=== PATIENT | male | born 1950 | race Caucasian/White ===

== ENCOUNTER 2018-02-19 16:33 | Emergency (ER) | payer OTHER ==
[~2018-02-19] VITALS: Ht 175.3 cm; Wt 94.3 kg
[2018-02-19] MEDS ORDERED: ADVAIR HFA 230M12 GM INH (17:25)
[2018-02-19] MEDS ORDERED: METFORMIN HCL500 MG PO (17:25)
[2018-02-19] MEDS ORDERED: VENTOLIN HFA 1818 GM INH (17:26)
[2018-02-19 18:08] LABS: ABSOLUTE NEUTROPHILS 11.6 thou/uL (1.4-8.2); BASOPHILS 0.2 % (0.0-2.0); EOSINOPHILS 0.9 % (0.0-3.0); HEMATOCRIT 43.1 % (42.0-52.0); HEMOGLOBIN 14.4 gm/dL (14.0-18.0); LYMPHOCYTES 15.3 % (24.0-44.0); MCH 29.3 pg (26.0-34.0); MCHC 33.5 g/dL (28.0-37.0); MCV 87.2 fL (80.0-100.0); MONOCYTES 5.4 % (1.0-8.0); PLATELET COUNT 269 thou/uL (150-400); POLYS 78.2 % (36.0-66.0); RBC 4.94 mil/uL (4.50-6.00); RDW 13.4 % (10.5-14.5); WBC 14.8 thou/uL (4.0-11.0)
[2018-02-19 18:10] LABS: CALCIUM 9.2 mg/dL (8.5-10.1); CREATININE 1.5 mg/dL (0.7-1.3); POTASSIUM 4.4 mmol/L (3.5-5.1)
[2018-02-19 18:15] LABS: ALBUMIN 2.9 g/dL (3.4-5.0); DIRECT BILIRUBIN 0.1 mg/dL (<0.1-0.3); TOTAL BILIRUBIN 0.3 mg/dL (<0.1-1.0); TOTAL PROTEIN 7.1 g/dL (6.4-8.2)
[2018-02-19 19:22] LABS: URINE BILIRUBIN NEGATIVE (Negative); URINE BLOOD NEGATIVE (Negative); URINE CLARITY CLEAR; URINE COLOR YELLOW; URINE GLUCOSE-RANDOM* 3+ (Negative); URINE KETONES NEGATIVE (Negative); URINE LEUKOCYTES-REFLEX NEGATIVE (Negative); URINE NITRITE-REFLEX NEGATIVE (Negative); URINE PROTEIN (DIPSTICK) NEGATIVE (Negative); URINE SPECIFIC GRAVITY <= 1.005 (1.005-1.035); URINE UROBILINOGEN 0.2 E.U./dl (0.2-1.0)
[2018-02-19 22:49] VITALS: BP 127/76
== END 2018-02-19 23:01 | disposition home or self-care (01) ==
LOC: ER 16:33
PROVIDERS: Emergency Medicine
DX: R19.7 Diarrhea, unspecified (principal); J45.909 Unspecified asthma, uncomplicated; E11.9 Type 2 diabetes mellitus without complications; Z88.1 Allergy status to other antibiotic agents

== ENCOUNTER → 2019-03-17 | Outpatient (CLI) | payer OTHER ==
[~2019-03-17] MED LIST: ADVAIR HFA 230M12 GM INH; JARDIANCE10 MG PO; METFORMIN HCL500 MG PO; NEURONTIN 300300 M1 PO; SYMBICORT80 MCG/4.1 INH; VENTOLIN HFA 1818 GM INH
== END ==
LOC: CAT 11:18
DX: K44.9 Diaphragmatic hernia without obstruction or gangrene (principal); N13.30 Unspecified hydronephrosis; M47.816 Spondylosis without myelopathy or radiculopathy, lumbar region

== ENCOUNTER 2019-03-23 09:36 | Emergency (ER) | payer OTHER ==
[~2019-03-23] VITALS: Ht 175.3 cm; Wt 91.6 kg
[~2019-03-23 09:36] MED LIST changes: -JARDIANCE10 MG PO; -NEURONTIN 300300 M1 PO; -SYMBICORT80 MCG/4.1 INH
[2019-03-23] MEDS ORDERED: SYMBICORT80 MCG/4.1 INH (09:52)
[2019-03-23] MEDS ORDERED: NEURONTIN 300300 M1 PO (09:52)
[2019-03-23] MEDS ORDERED: JARDIANCE10 MG PO (09:56)
[2019-03-23 10:31] LABS: ABSOLUTE NEUTROPHILS 4.1 thou/uL (1.4-8.2); EOSINOPHILS 4.6 % (0.0-3.0); HEMOGLOBIN 14.2 gm/dL (14.0-18.0); LYMPHOCYTES 23.8 % (24.0-44.0); MCH 28.7 pg (26.0-34.0); MCHC 32.9 g/dL (28.0-37.0); MCV 87.2 fL (80.0-100.0); MONOCYTES 4.6 % (1.0-8.0); PLATELET COUNT 165 thou/uL (150-400); RBC 4.93 mil/uL (4.50-6.00); RDW 13.4 % (10.5-14.5); WBC 6.3 thou/uL (4.0-11.0)
[2019-03-23 10:46] LABS: ANION GAP 5 mmol/L (7-16); BUN 15 mg/dL (7-18); CHLORIDE 103 mmol/L (98-107); CO2 27 mmol/L (21-32); CREATININE 1.2 mg/dL (0.7-1.3); GLUCOSE 234 mg/dL (74-106); POTASSIUM 4.1 mmol/L (3.5-5.1); SODIUM 135 mmol/L (136-145)
[2019-03-23 10:56] LABS: TROPONIN-I <0.06 ng/mL (<0.06)
[2019-03-23 12:13] VITALS: BP 118/68
--- NOTE | 2019-03-24 09:20 | EKG ---
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: [facility] : 1950 Requested By: David Corado Order Number: [id number] MD: Jaime Garay Measurements Intervals [place] Rate: 70 P: 60 NV: 201 QRS: -70 QRSD: 151 T: 89 QT: 436 QTc: 471 Interpretive Statements Sinus rhythm Nonspecific IVCD with LAD Compared to ECG 06/23/2000 00:06:10 Intraventricular conduction delay now present axis has shifted leftward Electronically Signed On 03-24-2019 9:20:39 CDT by Jaime Garay [email or web address] <ELECTRONICALLY SIGNED> By: Jaime Garay MD, [facility] 03/24/19919 21 102 Jaime Garay MD, FACC /EPI
== END 2019-03-23 12:14 | disposition home or self-care (01) ==
LOC: ER 09:36
PROVIDERS: Emergency Medicine
DX: M79.602 Pain in left arm (principal); J45.909 Unspecified asthma, uncomplicated; E11.9 Type 2 diabetes mellitus without complications; Z90.89 Acquired absence of other organs; Z88.6 Allergy status to analgesic agent

== ENCOUNTER → 2020-03-29 | Outpatient (CLI) | payer OTHER ==
[~2020-03-29] MED LIST changes: +JARDIANCE10 MG PO; +NEURONTIN 300300 M1 PO; +SYMBICORT80 MCG/4.1 INH
== END ==
LOC: LAB 08:48
PROVIDERS: ATTEND Family Medicine
DX: Z20.828 Contact with and (suspected) exposure to other viral communicable diseases (principal)

== ENCOUNTER 2020-04-09 10:14 | Inpatient (IN) | payer OTHER ==
[~2020-04-09] VITALS: Ht 175.3 cm; Wt 90.0 kg
[2020-04-09 10:14] VITALS: BP 149/94
[2020-04-09 11:14] LABS: ABSOLUTE NEUTROPHILS 5.9 thou/uL (1.4-8.2); BASOPHILS 0.6 % (0.0-2.0); EOSINOPHILS 1.6 % (0.0-3.0); HEMATOCRIT 45.1 % (42.0-52.0); HEMOGLOBIN 14.7 gm/dL (14.0-18.0); LYMPHOCYTES 17.3 % (24.0-44.0); MCH 28.6 pg (26.0-34.0); MCHC 32.7 g/dL (28.0-37.0); MCV 87.6 fL (80.0-100.0); MONOCYTES 7.6 % (1.0-8.0); PLATELET COUNT 166 thou/uL (150-400); POLYS 72.9 % (36.0-66.0); RBC 5.14 mil/uL (4.50-6.00); RDW 13.7 % (10.5-14.5)
[2020-04-09 11:24] LABS: CALCIUM 8.8 mg/dL (8.5-10.1); CREATININE 1.3 mg/dL (0.7-1.3); POTASSIUM 4.4 mmol/L (3.5-5.1)
[2020-04-09 11:35] LABS: ALBUMIN 3.9 g/dL (3.4-5.0); TOTAL PROTEIN 7.6 g/dL (6.4-8.2); TROPONIN-I 0.07 ng/mL (<0.06)
--- NOTE | 2020-04-09 14:39 | EKG ---
[facility] [place] [address] ELECTROCARDIOGRAM REPORT Name: LASHA MENA Room #: 170-12 ADM IN M.R.#: [id number] Admission: 04/09/20 Attend Phys: Shade Murray MD Discharge: Date of : 46 Report #: [id number] THIS REPORT FOR: cc: Shade Murray MD, Neal A. 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1950 Requested By: Girma Benton Order Number: [id number] MD: Anthony Ramirez Measurements Intervals [place] Rate: 93 P: 55 MI: 200 QRS: -80 QRSD: 159 T: 84 QT: 416 QTc: 518 Interpretive Statements Sinus rhythm Borderline prolonged [place] interval Nonspecific IVCD with LAD Left ventricular hypertrophy Compared to ECG 03/23/2019 10:22:48 Left ventricular hypertrophy now present Electronically Signed On 04-09-2020 14:39:30 INDUSTRIAL EDUCATION TEACHER by Anthony Ramirez [email or web address] <ELECTRONICALLY SIGNED> By: Anthony Ramirez MD, FACC 04/09/20 1439 1037 1037 Anthony Ramirez MD, [facility] /EPI
[2020-04-10 09:31] VITALS: BP 133/88
[2020-04-10 10:00] VITALS: BP 133/88
[2020-04-10 11:15] VITALS: BP 133/88
[2020-04-10 14:41] LABS: HEMATOCRIT 45.3 % (42.0-52.0); HEMOGLOBIN 15.1 gm/dL (14.0-18.0); MCH 28.9 pg (26.0-34.0); MCHC 33.3 g/dL (28.0-37.0); MCV 86.8 fL (80.0-100.0); RBC 5.22 mil/uL (4.50-6.00); RDW 13.7 % (10.5-14.5); WBC 6.6 thou/uL (4.0-11.0)
[2020-04-10 14:59] LABS: APTT 25.6 Seconds (24.5-32.8); INR 1.1; PROTIME 11.2 Seconds (9.3-11.4)
[2020-04-10 16:00] VITALS: BP 110/71
--- NOTE | 2020-04-10 17:47 | NUR ---
ADMISION COMPLETED, AND POC INITIATED. HEPARIN GTT STARTED AND WILL CONTINUE WITH POC.
[2020-04-10 19:55] VITALS: BP 133/68
[2020-04-11 00:13] VITALS: BP 116/71
[2020-04-11 04:45] VITALS: BP 110/74
--- NOTE | 2020-04-11 04:46 | NUR ---
ASSESSMENTS CHARTED, MEDS CHARTED GIVEN. 1ST DEGREE AND BBB BLOCKS. ON ROOM AIR. UP AT JANEL IN ROOM. ON HEPARIN DRIP DURING SHIFT.BOLUS AND RATE INCREASED DURING SHIFT. RECHECK ORDERED. FALL PRECAUTIONS IN PLACE DURING SHIFT.
[2020-04-11 07:30] VITALS: BP 117/83
[2020-04-11 13:26] VITALS: BP 106/66
[2020-04-11 16:33] VITALS: BP 96/64
--- NOTE | 2020-04-11 17:24 | NUR ---
ASSUMED CARE AT SHIFT CHANGE, ASSESSMENT DOCUMNETED, VSS AND AFEBRILE. REMIANS ON HEPARIN GTT, NO CHANGE MADE. PLAN IS NPO MID NIGHT AND LT HEART CATH IN THE AM. AND WILL CONTINUE WITH POC.
[2020-04-11 20:33] VITALS: BP 106/81
[2020-04-12] VITALS (12 sets, daily range): BP systolic 100–125; BP diastolic 50–75
--- NOTE | 2020-04-12 06:40 | NUR ---
ASSUME CARE 1900. PT/VITALS STABLE. DENIES ANY PAIN. STABLE VITALS. ADEQUATE REST NOTED. NO DISTRESS. SR ON MONITOR. ASSESSMENT CHARTED. PROGRESSING WELL WITH POC. PLAN IS POSSIBLE CARDIAC CATH TODAY. WILL CONTINUE TO MONITOR AND FOLLOW WITH POC
[2020-04-12 06:49] LABS: CALCIUM 9.2 mg/dL (8.5-10.1); CREATININE 1.3 mg/dL (0.7-1.3); POTASSIUM 3.9 mmol/L (3.5-5.1)
--- NOTE | 2020-04-12 08:54 | 2DMMODE ---
[facility] [address] [place] [address] 2 D/M-MODE ECHOCARDIOGRAM Name: LASHA MENA Room #: 211-P ADM IN .R.#: [id number] Admission: 04/09/20 Attend Phys: Shade Murray MD Discharge: Date of : 46 Report #: [id number] THIS REPORT FOR: cc: Shade Murray MD, Neal A. MD Park, Jin S. MD ~ ADDENDUM APPROVED REPORT Study performed: 04/10/2020 10:19:17 EXAM: Comprehensive 2D, Doppler, and color-flow Echocardiogram Patient Location: ER Status: routine BSA: 2.12 HR: 82 bpm BP: 133/83 mmHg Rhythm: NSR Other Information Study Quality: Fair Risk Factors: Cardiac Risk Factors: DM Indications Congestive Heart Failure 2D Dimensions RVDd: 34.75 mm IVSd: 13.84 (7-11mm) LVOT Diam: 26.03 (18-24mm) LVDd: 70.91 mm PWd: 14.83 (7-11mm) Ascending Ao: 40.51 (22-36mm) LVDs: 63.88 (25-40mm) Left Atrium: 50.04 (27-40mm) Aortic Root: 38.94 mm Volumes Left Atrial Volume (Systole) Single Plane 4CH: 54.01 mL Single Plane 2CH: 72.58 mL Aortic Valve AoV Peak Kimo.: 1.39 m/s AO Peak Gr.: 7.70 mmHg LVOT Max P.31 mmHg [facility] [address] [place] [address] 2 D/M-MODE ECHOCARDIOGRAM Name: MENALASHA Room #: 211-P [facility] IN .R.#: [id number] Admission: 04/09/20 Attend Phys: Shade Murray, Discharge: Date of : 46 Report #: [id number] LVOT Max V: 0.91 m/s KUNAL Vmax: 3.49 cm2 Mitral Valve E/A Ratio: 0.5 MV E Max Kimo.: 0.59 m/s MV A Kimo.: 1.21 m/s Left Ventricle Left ventricle is dilated. Borderline concentric left ventricular hypertrophy. Left ventricular ejection fraction is severely decreased. Left ventricular apical thrombus appears to be present. LVEF is 15-20%. Right Ventricle The right ventricle is normal size. Right ventricle is moderately hypokinetic. Atria Left atrium is mildly dilated. The right atrium size is normal. Aortic Valve The aortic valve is normal in structure. Trace aortic regurgitation. There is no aortic valvular stenosis. Mitral Valve The mitral valve is normal in structure. Mild mitral regurgitation. No evidence of mitral valve stenosis. Tricuspid Valve The tricuspid valve is normal in structure. Unable to assess PA pressure. Pulmonic Valve The pulmonary valve is normal in structure. There is no pulmonic valvular regurgitation. Great Vessels Aortic root is dilated. IVC is normal in size and collapses >50% with inspiration. Pericardium There is no pericardial effusion. <Conclusion> [facility] [address] [place] [address] 2 D/M-MODE ECHOCARDIOGRAM Name: MENALASHA Room #: 211-P [facility] IN M.R.#: [id number] Admission: 04/09/20 Attend Phys: Shade Murray, Discharge: Date of : 46 Report #: [id number] Left ventricle is dilated. Left ventricular ejection fraction is severely decreased. Left ventricular apical thrombus appears to be present. The right ventricle is normal size. Trace aortic regurgitation. Mild mitral regurgitation. <ELECTRONICALLY SIGNED> By: Eddie Foster MD 04/12/2054 3 3 Eddie Foster MD /INF
[2020-04-12 12:47] LABS: BE(vivo) 0.6 mmol/L (-2 to +3); HCO3 24.9 mmol/L (22.0-26.0); PCO2 39.1 mmHg (35.0-45.0); pH 7.422 (7.360-7.450); sO2 99.3 % (92.0-98.0)
[2020-04-12 12:48] LABS: BE(vivo) 0.9 mmol/L (-2 to +3); HCO3 26.8 mmol/L (22.0-26.0); PCO2 47.6 mmHg (35.0-45.0); PO2 36.8 mmHg (80.0-100.0); pH 7.369 (7.360-7.450)
--- NOTE | 2020-04-12 15:13 | CATHLAB ---
[facility] [address] [place] [address] INVASIVE PROCEDURE REPORT Name: LASHA MENA Room #: 211-P ADM IN M.R.#: [id number] Admission: 04/09/20 Attend Phys: Shade Murray MD Discharge: Date of : 46 Report #: [id number] THIS REPORT FOR: cc: Shade Murray MD, Neal A. MD Park, Jin S. MD ~ APPROVED REPORT Study performed: 04/12/2020 12:04:06 Patient Details Patient Status: In-Patient Room #: 211 The patient is a 69 year-old male Event Personnel Eddie Foster Substance Abuse Nurse, Milka Ko RN RN, Birdie Trotter RTR Scrub, Anthony Cruz RTR Monitor, Lauren Vásquez RTR, RESIDENTIAL TREATMENT SPECIALIST Monitor, Fatuma Edwards RT(R)() Scrub Procedures Performed Art Access - R femoral artery* Tito Access - R femoral vein Right and Left Heart Cath w/or w/o Coronarie 9055703 RLHC Hemostasis with Manual pressure 27652 Initial Mod Sed Same Phys/QHP Gr5y 564599 24784 Mod Sed Same Phys/QHP Ea 144070 43375 Mod Sed Same Phys/QHP Ea 512351 Indication CHF Current Status: , Dyspnea, Cardiomyopathy Risk Factors Hypercholesterolemia, Hypertension Procedure Narrative The Right Groin^ was infiltrated with 1% Lidocaine subcutaneous anesthesia. A PINNACLE 4FR Sheath #[id number] sheath was inserted into the RFA. Coronary angiography was performed using coronary diagnostic catheters. The right coronary system was accessed and visualized with a JR4 catheter. The left coronary system was accessed and visualized with a 4FR JL 5.0 #[id number] catheter. The left ventricle was accessed and visualized with a angled pigtail catheter. Left ventricular/Aortic Valve gradient assessed . Left ventriculogram was performed in 30 degree projection. Hemostasis was obtained with manual pressure following sheath removal without any complications. The patient tolerated the procedure well and there were no [facility] [address] [address] INVASIVE PROCEDURE REPORT Name: TRINALASHA C Room #: 211-P [facility] IN [facility]#: [id number] Admission: 04/09/20 Attend Phys: Shade Murray, Discharge: Date of : 46 Report #: [id number] complications associated with the procedure. There was no hematoma. Intraoperative Conscious Sedation Sedation start time: 12:23 Case end Time: 13:02 Fentanyl 50 mcg Versed 1 mg Fluoro Time: 5.60 minutes Dose: DAP 9967.00 cGycm2 1494 mGy Contrast Type and Amount: Visipaque 90 ml Coronary Angiography The patient's coronary anatomy is right dominant. Diagnostic Cath Left Main The left main artery is a large-caliber vessel, patent with no flow-limiting lesions. LAD The LAD is a moderate-sized caliber vessel, traverses the anterior wall and wraps around the apex. There is a mild stenosis in the proximal segment, 20%. Diagonal 1 This is a moderate-sized caliber vessel, patent with no flow-limiting lesions. Diagonal 2 This is a moderate-sized caliber vessel, patent with no flow-limiting lesions. Circumflex The left circumflex artery is a patent vessel, with no flow-limiting lesions. Supplies 2 obtuse marginal arteries. OM1 This is a moderate-sized caliber vessel, patent with no flow-limiting lesions. OM2 This is a moderate-sized caliber vessel, patent with no flow-limiting lesions. Right Coronary The RCA is a dominant vessel, with a mild stenosis proximally, 20%. R PDA This is a moderate-sized caliber vessel, patent with no flow-limiting lesions. RPLV This is a moderate-sized caliber vessel, patent with no flow-limiting lesions. Left Ventriculography The left ventricle is dilated in size with Diminished contractility. The left ventricular ejection fraction is estimated to be 15%. Hemodynamics The right atrial mean pressure is 10 mmHg. The right ventricular [facility] [address] [place] [address] INVASIVE PROCEDURE REPORT Name: LASHA MENA Room #: 211-P [facility] IN M.R.#: [id number] Admission: 04/09/20 Attend Phys: Shade Murray, Discharge: Date of : 46 Report #: [id number] pressure is 40/10 mmHg. The pulmonary artery pressure is 47/27 mmHg with a mean of 35 mmHg. The mean pulmonary capillary wedge pressure is 29 mmHg. The aortic pressure is 107/73 mmHg with a mean of 89 mmHg. The left ventricular pressure is 114/22 mmHg with a mean of mmHg. The left ventricular end diastolic pressure is 32 mmHg. PaO2 saturation is 66.00 %. Arterial saturation is 98.20 %. The cardiac output using the Katty method is 3.66 L/min. The cardiac index using the Katty method is 1.78 L/min/m2. Conclusion 1. Severe, nonischemic cardiomyopathy. 2. 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 3. Right-sided hemodynamic pressures as listed. 4. Recommend guideline directed medical therapy. <ELECTRONICALLY SIGNED> By: Eddie Foster MD 04/12/20 1513 1513 1513 Eddie Foster MD /INF
--- NOTE | 2020-04-12 18:32 | NUR ---
ASSESSMENT CHARTED, S/P CARDIAC CATH, RT GRION INTACT AND VSS. AND WILL CONTINUE WITH POC.
[2020-04-13] VITALS (8 sets, daily range): BP systolic 91–126; BP diastolic 50–76
--- NOTE | 2020-04-13 04:59 | NUR ---
PT RESTING QUIETLY IN ROOM THRU THE NOC, R GROIN REMAINS CDI, VSS, NO C/O PAIN, NPO TODAY FOR LILY, WILL CON'T TO MONITOR PER PPOC.
[2020-04-13 05:07] LABS: HEMATOCRIT 40.8 % (42.0-52.0); HEMOGLOBIN 13.6 gm/dL (14.0-18.0); MCH 28.7 pg (26.0-34.0); MCHC 33.2 g/dL (28.0-37.0); MCV 86.5 fL (80.0-100.0); RBC 4.72 mil/uL (4.50-6.00); RDW 13.2 % (10.5-14.5); WBC 7.5 thou/uL (4.0-11.0)
[2020-04-13 05:18] LABS: CALCIUM 8.8 mg/dL (8.5-10.1); CREATININE 1.4 mg/dL (0.7-1.3); POTASSIUM 4.1 mmol/L (3.5-5.1)
[2020-04-13 08:17] LABS: CHOLESTEROL 148 mg/dL (<200); HDL CHOLESTEROL 42 mg/dL (>40); LDL CHOLESTEROL 84 mg/dL (<100); TC:HDL 3.5 Ratio (Not establshd); TRIGLYCERIDE 112 mg/dL (<150); VLDL 22 mg/dL (<40)
--- NOTE | 2020-04-13 09:25 | TEE ---
[facility] [place] [address] TRANSESOPHAGEAL ECHOCARDIOGRAM Name: LASHA MENA Room #: 211-P ADM IN M.R.#: [id number] Admission: 04/09/20 Attend Phys: Shade Murray MD Discharge: Date of : 46 Report #: [id number] THIS REPORT FOR: cc: Shade Murray MD, Neal A. MD Lundgren, Craig H. MD [facility] ~ APPROVED REPORT Study performed: 04/13/2020 08:13:05 EXAM: Transesophageal Echocardiogram Patient Location: In-Patient Room #: 211 Status: routine BSA: 2.12 HR: 60 bpm BP: 120/76 mmHg Rhythm: NSR Other Information Study Quality: Adequate Indications Cardiomyopathy, Rule out apical thrombus. Hx: Mild non-obstructive CAD, DM. Procedure After obtaining informed consent, patient underwent transesophageal echo in the [employer]. Type of Sedation : Conscious Sedation Sedation was administered by IBETH Spencer. Sedation was achieved intravenously with: Versed (5) Fentanyl (50) Transesophageal probe was inserted and advanced into esophagus without difficulty by Jaime Garay MD. Echo enhancement indication: R/O Septal defect. Echo enhancement agent administered: Agitated Saline The LILY was performed without complications. Throughout the procedure, the blood pressure, pulse oximetry, cardiac rhythm, and rate were monitored. The patient tolerated the procedure without adverse effects. Recovery from conscious sedation was uneventful and vital signs were stable. [facility] [address] [place] [address] TRANSESOPHAGEAL ECHOCARDIOGRAM Name: LASHA MENA Room #: 211-P [facility] IN [facility].#: [id number] Admission: 04/09/20 Attend Phys: Shade Murray, Discharge: Date of : 46 Report #: [id number] Left Ventricle Left ventricle is dilated. Borderline concentric left ventricular hypertrophy. Left ventricular systolic function is severely decreased. Left ventricular apex is not well visualized. There appears to be a false tendon at the apex along with an apically displaced papillary muscle head. Possible apical thrombus present. LVEF is 15-20%. Right Ventricle The right ventricle is normal size. Right ventricle is hypokinetic. Atria Left atrium is dilated. No thrombus is visualized in the left atrium or appendage. No shunting noted with contrast bubble injection. The right atrium size is normal. Aortic Valve The aortic valve is normal in structure. No aortic regurgitation is present. There is no aortic valvular stenosis. Mitral Valve The mitral valve is normal in structure. Mild mitral regurgitation. No evidence of mitral valve stenosis. Tricuspid Valve The tricuspid valve is normal in structure. Trace tricuspid regurgitation. Pulmonic Valve The pulmonary valve is normal in structure. There is no pulmonic valvular regurgitation. Great Vessels The aortic root is normal in size. IVC is normal in size and collapses >50% with inspiration. Pericardium There is no pericardial effusion. Critical Notification Critical Value: Yes <Conclusion> Left ventricular systolic function is severely decreased. Left ventricular apex is not well visualized. There appears to be a [facility] [address] [place] [address] TRANSESOPHAGEAL ECHOCARDIOGRAM Name: LASHA MENA Mai Room #: 211-P ADM IN ..#: [id number] Admission: 04/09/20 Attend Phys: Shade Murray, Discharge: Date of : 46 Report #: [id number] false tendon at the apex along with an apically displaced papillary muscle head. Possible apical thrombus present. LVEF is 15-20%. Left atrium is dilated. No thrombus is visualized in the left atrium or appendage. No shunting noted with contrast bubble injection. The aortic valve is normal in structure. No aortic regurgitation or stenosis The mitral valve is normal in structure. Mild mitral regurgitation. There is no pericardial effusion. <ELECTRONICALLY SIGNED> By: Jaime Garay MD, FACC 04/13/20924 4 4 Jaime Garay MD, FACC /INF
--- NOTE | 2020-04-13 18:25 | NUR ---
Met with patient who admits with bradycardia. Patient resides at home with . he reports multilevel home but independent with steps. He has a cane and walker if needed. Patient and drive. also with heart issues and sees Dr Foster on outpatient basis. PCP for patient is Dr Murray. Patient to be placed with [facility] in am. [place]. Left message with med assist to please see patient.
[2020-04-14 04:45] VITALS: BP 102/61
[2020-04-14 07:20] VITALS: BP 116/64
[2020-04-14] MEDS ORDERED: CARVEDILOL3.125 MG PO (08:01)
[2020-04-14] MEDS ORDERED: WARFARIN SODIUM5 MG PO (08:01)
[2020-04-14] MEDS ORDERED: COZAAR 25 MG TA25 M1 PO (08:01)
[2020-04-14] MEDS ORDERED: LASIX 20 MG TAB20 MG PO (08:02)
[2020-04-14] MEDS ORDERED: NEURONTIN 300M300 M2 PO (08:02)
--- NOTE | 2020-04-14 08:02 | NUR ---
SLEPT MOST OF SHIFT. UP AD JANEL WITH STEADY GAIT. TELEMETRY SHOWS 5-6 BEATS VT AT TIMES. WORKING ON GOALS AND PLAN OF CARE. PROGRESSING SLOWLY TOWARDS DISCHARGE GOALS. CONTINUE TO ASSES. DENIES ALL COMPLAINTS THIS SHIFT.
[2020-04-14] MEDS ORDERED: CEFDINIR300 MG PO (08:03)
[2020-04-14 08:35] VITALS: BP 116/64
--- NOTE | 2020-04-14 13:12 | NUR ---
MEDICATION AND DISCHARGE INSTRUCTIONS GIVEN TO PATIENT AND SPOUSE, AND PATIENT DISCHARGED HOME.
== END 2020-04-14 13:13 | disposition home or self-care (01) | DRG 286 ==
LOC: ER 10:14 → 2N 13:27 → EROBS 13:27 → 2N 04-10 10:00
PROVIDERS: Emergency Medicine; Internal Medicine Cardiovascular Disease; Nurse Practitioner; ADMIT Family Medicine; ATTEND Family Medicine
DX: I50.21 Acute systolic (congestive) heart failure (principal); J18.9 Pneumonia, unspecified organism; N17.9 Acute kidney failure, unspecified; I47.2 Ventricular tachycardia; I42.8 Other cardiomyopathies; Z20.828 Contact with and (suspected) exposure to other viral communicable diseases; J45.909 Unspecified asthma, uncomplicated; D64.9 Anemia, unspecified; E11.22 Type 2 diabetes mellitus with diabetic chronic kidney disease; N18.9 Chronic kidney disease, unspecified; E78.5 Hyperlipidemia, unspecified; I51.3 Intracardiac thrombosis, not elsewhere classified; Z88.1 Allergy status to other antibiotic agents; Z86.718 Personal history of other venous thrombosis and embolism; Z79.82 Long term (current) use of aspirin; Z79.899 Other long term (current) drug therapy
CPT/HCPCS: 10081

== ENCOUNTER → 2020-04-16 | Outpatient (CLI) | payer OTHER ==
[~2020-04-16] MED LIST changes: +CARVEDILOL3.125 MG PO; +CEFDINIR300 MG PO; +COZAAR 25 MG TA25 M1 PO; +LASIX 20 MG TAB20 MG PO; +NEURONTIN 300M300 M2 PO; +WARFARIN SODIUM5 MG PO
== END ==
LOC: SJCVC 08:59
PROVIDERS: ATTEND Internal Medicine Cardiovascular Disease
DX: R94.31 Abnormal electrocardiogram [ECG] [EKG] (principal); I44.0 Atrioventricular block, first degree; I45.4 Nonspecific intraventricular block; E78.00 Pure hypercholesterolemia, unspecified; I42.9 Cardiomyopathy, unspecified; E11.9 Type 2 diabetes mellitus without complications; I50.9 Heart failure, unspecified; I47.2 Ventricular tachycardia; Z79.01 Long term (current) use of anticoagulants; Z79.899 Other long term (current) drug therapy

== ENCOUNTER → 2020-04-21 | Outpatient (CLI) | payer OTHER | LOC: SJCVC 08:54 | PROVIDERS: ATTEND Internal Medicine Cardiovascular Disease | DX: Z51.81 Encounter for therapeutic drug level monitoring (principal); Z79.01 Long term (current) use of anticoagulants ==

== ENCOUNTER 2020-07-18 09:36 | Inpatient (IN) | payer MEDICARE ==
[~2020-07-18] VITALS: Ht 175.3 cm; Wt 94.8 kg
--- NOTE | ~2020-07-18 | P ---
[facility] [place] [address] PROCEDURE REPORT Name: ALSHA MENA Room #: 216-P [facility] M.R.#: [id number] Admission: 07/18/20 Attend Phys: Shade Murray MD Discharge: Date of : 46 Report #: [id number] THIS REPORT FOR: cc: Shade Murray MD, Neal A. MD [facility] all[facility] MD ~ DATE OF SERVICE: 07/19/2020 PROCEDURE PERFORMED: Biventricular ICD implantation. PREOPERATIVE DIAGNOSES: 1. Acute on chronic left ventricular systolic heart failure. 2. Nonischemic cardiomyopathy. 3. Left bundle-branch block. 4. Symptomatic bradycardia. 5. High-degree AV block and complete heart block. POSTOPERATIVE DIAGNOSES: 1. Acute on chronic left ventricular systolic heart failure. 2. Nonischemic cardiomyopathy. 3. Left bundle-branch block. 4. Symptomatic bradycardia. 5. High-degree AV block and complete heart block. HISTORY: The patient is a 69-year-old male with a history of acute on chronic LV systolic heart failure, presented to the hospital with fatigue, shortness of breath, lightheadedness. He has a history of a nonischemic cardiomyopathy and is wearing a LifeVest. He has already met criteria for ICD implantation, but presented over the weekend with symptomatic bradycardia and periods of high-degree AV block and complete heart block. He is here for biventricular ICD implantation. ANESTHESIA: The patient underwent MAC anesthesia with no anesthesia related complications. DESCRIPTION OF PROCEDURE: The patient underwent informed consent. We discussed the details of the procedure including the risks, which include but not limited to bleeding, infection, vascular damage, cardiac perforation, pneumothorax. He understood these risks and was willing to proceed. The patient was brought to EP laboratory in a fasting and sedated state and prepped and draped in a sterile fashion. The patient received IV antibiotics prior to initiation of the procedure and underwent a venogram showing patency of the left axillary vein. Next, I injected lidocaine below the level of left clavicle. Incision was made, the pocket was created over the prepectoral fascia [address] [address] PROCEDURE REPORT Name: LASHA MENA Room #: 216-P [facility] IN .R.#: [id number] Admission: 07/18/20 Attend Phys: Shade Murray MD Discharge: Date of : 46 Report #: [id number] and access was obtained 3 times of left axillary vein using the extrathoracic approach. Sheaths were positioned using the modified Seldinger technique. Next, a RV lead was positioned into the RV apical septum, but there were low R waves. The lead was repositioned and there were essentially low R waves throughout the right ventricle. There were adequate thresholds with R waves at around 4-5 millivolts. Next, an atrial lead was positioned in right atrial appendage with adequate pacing and sensing thresholds. The leads were sutured to the prepectoral fascia, then a coronary guide sheath was placed into the coronary sinus. Access was straightforward and the coronary sinus venogram showed a very large middle cardiac vein that went to the lateral wall. He had a very small coronary sinus proper. This had a distal tapering along the distal two-thirds of this vessel. There was an anterolateral branch noted as well. There were no posterior lateral branches noted. Therefore, I initially tried to position lead into this anterolateral branch and I was able to get 3 out of the 4 pacing poles into the vessel, but there was essentially no capture except for 9 volts at 1 millisecond. Therefore, this vessel was abandoned and I was able to get into this middle cardiac vein and get out to the anterior lateral part of the left ventricle and we had great thresholds at this site at 0.75 volts at 0.5 milliseconds and we did have some phrenic nerve stimulation at around 5 volts. As such, the coronary sinus sheath and short sheath were withdrawn and the lead remained in position. This lead was sutured to the prepectoral fascia. The device was connected to the leads. Tug tests were performed. Device was placed in the pocket and the pocket was irrigated with vancomycin solution. Then, the pocket was closed in 2 layers with surgical glue placed to the outer skin layer. The patient awoke neurologically and hemodynamically intact. No complications and no significant bleeding. The implanted device and leads were ABS with the generator being #[id number], serial #[id number]. This is a [employer] MRI compatible device. Atrial lead was a 5076, 52 cm, serial #[id number]. RV lead was a 6935, 62 cm, serial #[id number]. The LV lead was a 4298, serial #[id number]. Atrial lead demonstrated P waves of 3.1 millivolts, pacing impedance of 399 ohms, pacing threshold 0.6 volts at 0.5 milliseconds. RV lead demonstrated R waves of 4.1 millivolts, pacing impedance 513 ohms, pacing threshold 0.5 volts at 0.5 milliseconds. LV lead pacing in the lv2-lv1 pacing configuration demonstrated a pacing impedance of 760 ohms and a pacing threshold of 0.7 volts at 0.5 milliseconds. The device was programmed to DDDR 60-130 mode. The LV lead was programmed to pace 30 milliseconds prior to the RV lead, which resulted in a QRS duration of 120 milliseconds and R wave noted in lead V1. The VT zone was set at 180-220 beats per minute with 3 rounds of burst followed by 3 rounds of ramp followed by max output shocks. VF zone was set at greater than 220 beats per minute with ATP while charging followed by max output shocks. CONCLUSIONS: 1. Successful BiV ICD implantation. [facility] [place] [place] [address] PROCEDURE REPORT Name: LASHA MENA Room #: 216-P [facility] IN ..#: [id number] Admission: 07/18/20 Attend Phys: Shade Murray MD Discharge: Date of : 46 Report #: [id number] 2. Satisfactory atrial, right ventricular and left ventricular pacing and sensing thresholds. By: 1353 [id number] Chris Smith MD /nt
[2020-07-18 09:43] VITALS: BP 150/105
--- NOTE | 2020-07-18 10:37 | EKG ---
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1950 Requested By: Shahrzad Phillips Order Number: [id number] MD: Jaime Garay Measurements Intervals [place] Rate: 39 P: 54 NJ: 282 QRS: -82 QRSD: 176 T: 72 QT: 640 QTc: 516 Interpretive Statements Sinus bradycardia with 2-1 heart block Prolonged [place] interval Nonspecific intraventricular conduction delay No previous ECG available for comparison Electronically Signed On 07-18-2020 10:37:32 NAVAL INSPECTOR by Jaime Garay [email or web address] <ELECTRONICALLY SIGNED> By: Jaime Garay MD, [facility] 07/18/20 [facility] 0949 0949 Jaime Garay MD, FACC /EPI
[2020-07-18 10:43] LABS: ABSOLUTE NEUTROPHILS 4.8 thou/uL (1.4-8.2); BASOPHILS 0.6 % (0.0-2.0); EOSINOPHILS 7.7 % (0.0-3.0); HEMATOCRIT 41.9 % (42.0-52.0); HEMOGLOBIN 13.7 gm/dL (14.0-18.0); LYMPHOCYTES 20.9 % (24.0-44.0); MCH 28.2 pg (26.0-34.0); MCHC 32.8 g/dL (28.0-37.0); MCV 85.9 fL (80.0-100.0); MONOCYTES 4.5 % (1.0-8.0); PLATELET COUNT 158 thou/uL (150-400); POLYS 66.3 % (36.0-66.0); RBC 4.88 mil/uL (4.50-6.00); RDW 14.7 % (10.5-14.5); WBC 7.3 thou/uL (4.0-11.0)
[2020-07-18 11:07] LABS: ANION GAP 9 mmol/L (7-16); BUN 16 mg/dL (7-18); CALCIUM 8.8 mg/dL (8.5-10.1); CHLORIDE 104 mmol/L (98-107); CO2 27 mmol/L (21-32); CREATININE 1.5 mg/dL (0.7-1.3); GLUCOSE 212 mg/dL (74-106); POTASSIUM 4.4 mmol/L (3.5-5.1); SODIUM 140 mmol/L (136-145)
[2020-07-18 11:17] LABS: ALBUMIN 3.6 g/dL (3.4-5.0); DIRECT BILIRUBIN 0.1 mg/dL (<0.1-0.2); MAGNESIUM 2.1 mg/dL (1.8-2.4); SGOT 17 U/L (15-37); SGPT 21 U/L (30-65); TOTAL BILIRUBIN 0.6 mg/dL (0.2-1.0); TOTAL PROTEIN 6.9 g/dL (6.4-8.2); TROPONIN-I <0.06 ng/mL (<0.06)
[2020-07-18 12:16] VITALS: BP 107/40
[2020-07-18 12:37] VITALS: BP 113/42
[2020-07-18 12:55] VITALS: BP 159/70
--- NOTE | 2020-07-18 14:26 | NUR ---
TO UNIT FROM Stephanie, REPORT FROM IBETH BREAUX. VSS, DENIES CP, SOA, ON ROOM AIR. BRADYCARDIA PERSISTS. ORIENTED TO UNIT, FALL PRECAUTIONS. RED RASH BILAT LE NOTED.
[2020-07-18 16:20] VITALS: BP 129/60
--- NOTE | 2020-07-18 16:46 | EKG ---
[address] 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1950 Requested By: Shahrzad Phillips Order Number: [id number] MD: Anthony Ramirez Measurements Intervals [place] Rate: 34 P: 52 TN: 267 QRS: -62 QRSD: 165 T: 153 QT: 669 QTc: 504 Interpretive Statements Predominant 2:1 AV block Nonspecific IVCD with LAD Left ventricular hypertrophy Abnrm T, consider ischemia, anterolateral lds Compared to ECG 07/18/2020 09:49:35 2:1 AV block now present Left ventricular hypertrophy now present Possible ischemia now present Sinus bradycardia no longer present First degree AV block no longer present Electronically Signed On 07-18-2020 16:46:08 SECURITY CONTROL CENTER OPERATOR by Anthony Ramirez [email or web address] <ELECTRONICALLY SIGNED> By: Anthony Ramirez MD, FACC 07/18/20 1646 1049 1049 Anthony Ramirez MD, FAC /EPI
[2020-07-18 20:57] VITALS: BP 116/54
[2020-07-19] VITALS (10 sets, daily range): BP systolic 100–134; BP diastolic 53–75
--- NOTE | 2020-07-19 05:31 | NUR ---
assumed pt care at the change of shift, pt is awake, alert and oriented, makes needs known, assessments as charted, denies any pain or sob, remains jarred as low as 30, remains asymptomatic, provider notified, no orders received, remains npo for pace maker placement today, denies concerns at this time, will continue to monitor and follow poc
[2020-07-19 11:17] LABS: INR 1.1; PROTIME 12.3 Seconds (9.3-11.4)
--- NOTE | 2020-07-19 19:47 | NUR ---
RECEIVED PT'S CARE AROUND 0725; PT. ON BED; ALERT; SB ON THE MONITOR; DURING AM ASSESSMENT NO C/O PAIN; AOX4; NPO; HOLD FUROSEMIDE UNTIL AFTER PROCEDURE; GONE FOR PROCEDURE AFTER 1000; BACK FROM PROCEDURE AFTER 1300; INCISION OVER L. CHEST; EDUCATED ABOUT CALLING BEFORE GETTING UP FROM BED; NO PUSHING NO PULLING; ST. UNDERSTANDING; EDUCATED ABOUT BED REST; ST. UNDERSTANDING; MEDICATION GIVEN; VPACED ON THE MONITOR; C/O PAIN; PRN PAIN MEDICATION GIVEN; REASSESSMENT C/O PAIN; PHYSICIAN NOTIFIED; ORDERS RECEIVED; ASSESSMENT CHARGED; FOLLOWING POC; PASSED ON REPORT;
[2020-07-20 00:30] VITALS: BP 118/72
[2020-07-20 04:45] VITALS: BP 114/80
--- NOTE | 2020-07-20 06:33 | NUR ---
ASSUMED CARE OF THE PATIENT AT 1900; AOX4; S/P PACEMAKER TO LEFT UPPER CHEST WITH LUE IMMOBILIZER IN PLACE; AVPACED ON THE MONITOR; VSS/ASSESSMENTS CHARTED; C/O PAIN MANAGED WITH PRN MEDICATIONS; URINAL AT BEDSIDE; PLAN IS FOR PATIENT TO D/C TO HOME TODAY; WILL CONTINUE MONITOR AND FOLLOW POC.
[2020-07-20 07:45] VITALS: BP 122/88
[2020-07-20] MEDS ORDERED: LIPITOR 20 MG T20 M1 PO (08:34)
[2020-07-20] MEDS ORDERED: HYDROCODON-ACE1 EAC7 PO (08:34)
[2020-07-20 10:18] LABS: CALCIUM 8.5 mg/dL (8.5-10.1); CREATININE 1.5 mg/dL (0.7-1.3); POTASSIUM 3.8 mmol/L (3.5-5.1)
[2020-07-20 12:00] VITALS: BP 106/53
[2020-07-20 12:53] VITALS: BP 122/88
== END 2020-07-20 13:26 | disposition home or self-care (01) | DRG 226 ==
LOC: ER 09:36 → 2N 12:14 → EROBS 12:14 → 2N 12:14
PROVIDERS: Emergency Medicine; Nurse Practitioner; ADMIT Family Medicine; ATTEND Family Medicine
PROC: 0JH608Z Insertion of Defibrillator Generator into Chest Subcutaneous Tissue and Fascia, Open Approach (ICD-10-PCS; principal; 2020-07-19)
PROC: B51N1ZZ Fluoroscopy of Left Upper Extremity Veins using Low Osmolar Contrast (ICD-10-PCS; principal; 2020-07-19)
PROC: 02H63KZ Insertion of Defibrillator Lead into Right Atrium, Percutaneous Approach (ICD-10-PCS; principal; 2020-07-19)
PROC: 02HK3KZ Insertion of Defibrillator Lead into Right Ventricle, Percutaneous Approach (ICD-10-PCS; principal; 2020-07-19)
DX: I44.2 Atrioventricular block, complete (principal); I50.23 Acute on chronic systolic (congestive) heart failure; L03.116 Cellulitis of left lower limb; L03.115 Cellulitis of right lower limb; I42.8 Other cardiomyopathies; I77.6 Arteritis, unspecified; I11.0 Hypertensive heart disease with heart failure; I25.10 Atherosclerotic heart disease of native coronary artery without angina pectoris; J45.909 Unspecified asthma, uncomplicated; I49.5 Sick sinus syndrome; E78.5 Hyperlipidemia, unspecified; I47.1 Supraventricular tachycardia; E11.51 Type 2 diabetes mellitus with diabetic peripheral angiopathy without gangrene; T45.515A Adverse effect of anticoagulants, initial encounter; E11.40 Type 2 diabetes mellitus with diabetic neuropathy, unspecified; Z20.822 Contact with and (suspected) exposure to COVID-19; Y92.89 Other specified places as the place of occurrence of the external cause; Z88.8 Allergy status to other drugs, medicaments and biological substances; Z79.899 Other long term (current) drug therapy; Z79.84 Long term (current) use of oral hypoglycemic drugs; Z88.3 Allergy status to other anti-infective agents

== ENCOUNTER 2020-08-05 21:35 | Emergency (ER) | payer MEDICARE ==
[~2020-08-05] VITALS: Ht 175.2 cm; Wt 93.0 kg
[~2020-08-05 21:35] MED LIST changes: +HYDROCODON-ACE1 EAC7 PO; +LIPITOR 20 MG T20 M1 PO
[2020-08-05] MEDS ORDERED: SYMBICORT80 MCG/4.1 INH (22:04)
[2020-08-05] MEDS ORDERED: WARFARIN SODIUM5 MG PO (22:05)
[2020-08-05 22:06] LABS: ABSOLUTE NEUTROPHILS 4.6 thou/uL (1.4-8.2); EOSINOPHILS 9.1 % (0.0-3.0); HEMATOCRIT 41.8 % (42.0-52.0); HEMOGLOBIN 14.1 gm/dL (14.0-18.0); LYMPHOCYTES 25.7 % (24.0-44.0); MCH 28.3 pg (26.0-34.0); MCHC 33.7 g/dL (28.0-37.0); MONOCYTES 7.6 % (1.0-8.0); PLATELET COUNT 184 thou/uL (150-400); POLYS 56.6 % (36.0-66.0); RBC 4.98 mil/uL (4.50-6.00); RDW 14.6 % (10.5-14.5); WBC 8.1 thou/uL (4.0-11.0)
[2020-08-05] MEDS ORDERED: SPIRONOLACTONE25 MG PO (22:06)
[2020-08-05] MEDS ORDERED: ASA81BEC PO (22:07)
[2020-08-05] MEDS ORDERED: HYDROXYZINE HCL10 M2 PO (22:08)
[2020-08-05 22:23] LABS: ANION GAP 7 mmol/L (7-16); BUN 19 mg/dL (7-18); CHLORIDE 101 mmol/L (98-107); CO2 27 mmol/L (21-32); CREATININE 1.4 mg/dL (0.7-1.3); GLUCOSE 148 mg/dL (74-106); POTASSIUM 4.1 mmol/L (3.5-5.1); SODIUM 135 mmol/L (136-145)
[2020-08-05 22:28] LABS: APTT 27.5 Seconds (24.5-32.8); PROTIME 11.2 Seconds (9.3-11.4)
[2020-08-05 22:33] LABS: ALBUMIN 3.5 g/dL (3.4-5.0); LIPASE 116 U/L (73-393); SGOT 21 U/L (15-37); SGPT 18 U/L (30-65); TOTAL BILIRUBIN 0.4 mg/dL (0.2-1.0); TOTAL PROTEIN 7.7 g/dL (6.4-8.2); TROPONIN-I <0.06 ng/mL (<0.06)
[2020-08-06] MEDS ORDERED: DOXYCYCLINE 10100 MG PO (03:18)
[2020-08-06] MEDS ORDERED: PREDNISONE 20 M20 M1 PO (03:18)
[2020-08-06 03:22] VITALS: BP 101/67
--- NOTE | 2020-08-06 07:13 | EKG ---
[place] [address] [facility] [employer] [address] ELECTROCARDIOGRAM REPORT Name: TRINALASHA C [id number] Admission: 08/05/20 Attend Phys: Discharge: 08/06/20 Date of : 46 Report #: [id number] [facility] ED Test Date: 2020-08-05 Test Time: 21:42:07 Pat Name: LASHA MENA Department: Room: Gender: M Accountant Cost: POLO : [id number] Requested By: Willem Vang Order Number: [id number] MD: Anthony Ramirez Measurements Intervals [place] Rate: 76 P: 165 SD: 162 QRS: -88 QRSD: 158 T: 102 QT: 478 QTc: 538 Interpretive Statements A-V dual-paced complexes w/ some inhibition No further analysis attempted due to paced rhythm Baseline wander in lead(s) V1 Compared to ECG 07/18/2020 10:49:04 2:1 AV block no longer present Intraventricular conduction delay no longer present Left ventricular hypertrophy no longer present Possible ischemia no longer present Electronically Signed On 08-06-2020 7:12:55 TEMPORARY DATA ENTRY CLERK by Anthony Ramirez [email or web address] <ELECTRONICALLY SIGNED> By: Anthony Ramirez MD, FAC 08/06/20711 41 41 Anthony Ramirez MD, [facility] /EPI
== END 2020-08-06 03:24 | disposition home or self-care (01) ==
LOC: ER 21:35
PROVIDERS: Emergency Medicine
DX: J20.9 Acute bronchitis, unspecified (principal); J18.9 Pneumonia, unspecified organism; I11.0 Hypertensive heart disease with heart failure; I50.9 Heart failure, unspecified; Z90.89 Acquired absence of other organs; Z95.0 Presence of cardiac pacemaker; Z79.899 Other long term (current) drug therapy; Z79.82 Long term (current) use of aspirin; Z79.01 Long term (current) use of anticoagulants; Z88.1 Allergy status to other antibiotic agents; Z88.8 Allergy status to other drugs, medicaments and biological substances

== ENCOUNTER → 2020-11-25 | Outpatient (CLI) | payer OTHER ==
[~2020-11-25] MED LIST changes: +ASA81BEC PO; +DOXYCYCLINE 10100 MG PO; +HYDROXYZINE HCL10 M2 PO; +PREDNISONE 20 M20 M1 PO; +SPIRONOLACTONE25 MG PO
== END ==
LOC: SJCVC 09:50
PROVIDERS: ATTEND Internal Medicine Cardiovascular Disease
DX: R94.31 Abnormal electrocardiogram [ECG] [EKG] (principal); I45.4 Nonspecific intraventricular block; I42.9 Cardiomyopathy, unspecified; I11.0 Hypertensive heart disease with heart failure; I50.9 Heart failure, unspecified; R60.9 Edema, unspecified; E78.00 Pure hypercholesterolemia, unspecified; R06.09 Other forms of dyspnea; E78.5 Hyperlipidemia, unspecified; Z88.8 Allergy status to other drugs, medicaments and biological substances; Z79.84 Long term (current) use of oral hypoglycemic drugs; Z79.82 Long term (current) use of aspirin; Z79.899 Other long term (current) drug therapy

== ENCOUNTER → 2021-04-19 | Outpatient (CLI) | payer OTHER | LOC: SJCVCIMAG 09:37 | PROVIDERS: ATTEND Internal Medicine | DX: I34.0 Nonrheumatic mitral (valve) insufficiency (principal); R60.9 Edema, unspecified; I42.9 Cardiomyopathy, unspecified; E78.00 Pure hypercholesterolemia, unspecified; I25.10 Atherosclerotic heart disease of native coronary artery without angina pectoris; I11.0 Hypertensive heart disease with heart failure; I50.9 Heart failure, unspecified; E78.5 Hyperlipidemia, unspecified; Z95.810 Presence of automatic (implantable) cardiac defibrillator; Z79.82 Long term (current) use of aspirin; Z79.84 Long term (current) use of oral hypoglycemic drugs; Z79.899 Other long term (current) drug therapy; Z88.8 Allergy status to other drugs, medicaments and biological substances ==